=== PATIENT | female | born 1985 ===

== ENCOUNTER 2017-01-15 07:48 | Observation (INO) | payer OTHER ==
[2017-01-15] MEDS ORDERED: Lactated Ringer's 1,000 ML IV ONE ×4 (08:12→19:00)
[2017-01-15 08:41] LABS: BASO % 0.2 % (0.0-2.0); EOS % 0.1 % (0.0-4.0); HEMATOCRIT 34.1 % (34.0-47.0); LYMPH # 1.6 K/uL (1.0-4.3); LYMPH % 12.2 % (20.0-40.0); MEAN CELL VOLUME 91.7 fL (81.0-99.0); MEAN CORPUSCULAR HEMOGLOBIN 31.3 pg (27.0-31.0); MEAN CORPUSCULAR HGB CONC 34.2 g/dL (33.0-37.0); MEAN PLATELET VOLUME 9.2 fL (7.2-11.7); MONO # 0.6 K/uL (0.0-0.8); MONO % 4.7 % (0.0-10.0); RED CELL DISTRIBUTION WIDTH 13.3 % (11.5-14.5); WHITE BLOOD COUNT 13.2 K/uL (4.8-10.8)
[2017-01-15 08:52] LABS: URINE BILIRUBIN NEGATIVE (NEGATIVE); URINE BLOOD 2+ (NEGATIVE); URINE COLOR Straw (YELLOW); URINE GLUCOSE (UA) NORMAL (Normal); URINE KETONE TRACE mg/dL (NEGATIVE); URINE LEUKOCYTE ESTERASE NEG Leu/uL (Negative); URINE PROTEIN NEGATIVE (NEGATIVE); URINE UROBILINOGEN NORMAL mg/dL (0.2-1.0)
[2017-01-15 08:56] LABS: ALB/GLOB RATIO 1.4 (1.0-2.1); ALKALINE PHOSPHATASE 51 U/L (38-126); ALT/SGPT 25 U/L (9-52); AST/SGOT 18 U/L (14-36); BILIRUBIN,TOTAL 1.4 mg/dL (0.2-1.3); BLOOD UREA NITROGEN 9 mg/dL (7-17); CALCIUM 8.3 mg/dl (8.6-10.4); CARBON DIOXIDE 28 mmol/L (22-30); CHLORIDE 98 mmol/L (98-107); GFR AFRICAN-AMERICAN > 60; GLUCOSE,RANDOM 97 mg/dL (65-105); POTASSIUM 3.6 mmol/L (3.6-5.2); SODIUM 134 mmol/L (132-148); TOTAL PROTEIN 7.4 g/dL (6.3-8.3)
[2017-01-15 08:57] LABS: RBC URINE 2 /hpf (0-3); URINE BACTERIA RARE (<OCC)
--- NOTE | 2017-01-15 09:29 | C.PDOC ---
History Of Present Illness 32-year-old female, presents to the emergency department with complaints of right-sided abdominal pain that started at midnight. Pain is described as sharp and worse with every movement. Patient notes associated nausea and non-bloody/ non-bilious vomiting x 1. She had a normal bowel movement this morning. Of note , patient reports LMP was last week. (-)fevers (-)chills (-)shortness of breath (-)dysuria (-) urinary frequency (-) vaginal discharge or any other associated symptoms. No other complaints at this time. Time Seen by Provider: 01/15/17 07:53 Chief Complaint (Nursing): Abdominal Pain Past Medical History Vital Signs: Last Vital Signs Temp 98.6 F 01/15/17 15:37 Pulse 82 01/15/17 15:37 Resp 18 01/15/17 15:37 BP 118/72 01/15/17 15:37 Pulse Ox 100 01/15/17 16:17 Family History: States: Unknown Family Hx - Social History Hx Alcohol Use: Yes Hx Substance Use: No - Immunization History Hx Influenza Vaccination: No Hx Pneumococcal Vaccination: No Review Of Systems Except As Marked, All Systems Reviewed And Found Negative. Constitutional: Negative for: Fever, Chills Cardiovascular: Negative for: Chest Pain Respiratory: Negative for: Shortness of Breath Gastrointestinal: Positive for: Nausea, Vomiting, Abdominal Pain. Negative for : Diarrhea Genitourinary: Negative for: Dysuria, Frequency, Vaginal Discharge, Vaginal Bleeding Musculoskeletal: Negative for: Back Pain Physical Exam - Physical Exam Appears: Non-toxic, No Acute Distress Skin: Warm, Dry, No Rash Head: Atraumatic, Normacephalic Eye(s): bilateral: Normal Inspection, EOMI Nose: Normal Oral Mucosa: Moist Neck: Normal ROM Chest: Symmetrical Cardiovascular: Rhythm Regular, No Murmur Respiratory: Normal Breath Sounds, No Accessory Muscle Use Gastrointestinal/Abdominal: Soft, Tenderness (RUQ/RLQ/right sided pelvic tenderness), Guarding, No Rebound Extremity: Normal ROM Neurological/Psych: Oriented x3, Normal Speech ED Course And Treatment - Laboratory Results Result Diagrams: 01/15/17 14:21 01/15/17 08:31 O2 Sat by Pulse Oximetry: 100 Progress Note: Blood work, UA and CT ordered. Patients urine positive for , will cancel CT and order US. Labs pending for review. On re- evaluation, pain persists. Morphine ordered. Upon US results, case discussed with Dr Guajardo who came to evaluate pt. Dr Guajardo instructs Abd/pelvis CT with contrast and discussed risks with pt . Pt agrees and signs consent. Verbalized understanding of risk vs benefits for Ct to her and the fetus. Also instructs cefozolin and Doxy. Case discussed with Dr Denny, agreed upon plan and discharge. Upon Ct results and drop in H&H, case discussed with Dr Guajardo, who instructs admission. Disposition - Disposition Disposition: HOSPITALIZED Disposition Time: 15:00 Condition: STABLE - Clinical Impression Clinical Impression: Hemoperitoneum, Ectopic , Hydrosalpinx - Scribe Statement The provider has reviewed the documentation as recorded by the Scribe (Juarez Peralta) All medical record entries made by the Scribe were at my direction and personally dictated by me. I have reviewed the chart and agree that the record accurately reflects my personal performance of the history, physical exam, medical decision making, and the department course for this patient. I have also personally directed, reviewed, and agree with the discharge instructions and disposition.
[2017-01-15 12:39] LABS: INR 1.1
--- NOTE | 2017-01-15 12:42 | US ---
HISTORY: pain COMPARISON: None available. TECHNIQUE: Transabdominal and endovaginal ultrasound examination of the pelvis was performed. FINDINGS: UTERUS: Measures 9 x 3.4 x 4.9 cm. Normal in size and appearance. There is a small fibroid noted at the mid left uterine wall measures 1.1 x 0.8 x 0.8 centimeter. ENDOMETRIUM: Measures 4.8 mm in diameter. Unremarkable. CERVIX: No cervical abnormality identified. RIGHT OVARY: Measures 3.6 x 2.3 x 2.9 cm. There is heterogeneous mildly echogenic masslike structure at the right adnexa measures 5.6 x 4.7 x 4.7 centimeter. Normal flow. LEFT OVARY: Measures 2.6 x 1.7 x 2.65 cm. There is heterogeneous mildly echogenic structure also noted at the left adnexa measures 6.9 x 3.5 x 4.1 centimeter. Normal flow. FREE FLUID: There is small to moderate amount of complex fluid in the pelvis bilaterally. OTHER FINDINGS: Small amount of free fluid also noted at the right upper abdomen. IMPRESSION: No evidence of intrauterine . Small fibroid seen at the mid left uterine wall. Heterogeneous complex mildly echogenic structures noted at both adnexa. The differential diagnosis includes bilateral hydrosalpinx/ para ovarian abscesses. The possibility of ectopic is less likely but not totally excluded. Small to moderate amount of complex fluid in the pelvis and small amount of fluid at the right upper abdomen. No evidence of ovarian torsion. The appendix is not visualized in the right lower abdomen.
[2017-01-15] MEDS ORDERED: Morphine 4 MG/ML VIAL ONE ×2 (12:47→15:44)
[2017-01-15] MEDS ORDERED: Sodium Chloride 0.9% 1,000 ML IV ONE (12:51)
[2017-01-15] MEDS ORDERED: cefOXitin IV 1 gm in Dextrose 1 GM/50 ML BAG IV ONE (13:09)
[2017-01-15] MEDS ORDERED: Iodixanol 320 MG/ML 100 ML BOTTLE IV ONE (13:46)
[2017-01-15 14:24] LABS: BASO # 0.1 K/uL (0.0-0.2); BASO % 0.5 % (0.0-2.0); EOS % 0.4 % (0.0-4.0); LYMPH # 2.5 K/uL (1.0-4.3); MEAN CELL VOLUME 91.5 fL (81.0-99.0); MEAN CORPUSCULAR HEMOGLOBIN 30.7 pg (27.0-31.0); MEAN CORPUSCULAR HGB CONC 33.5 g/dL (33.0-37.0); MEAN PLATELET VOLUME 8.8 fL (7.2-11.7); MONO # 0.7 K/uL (0.0-0.8); MONO % 5.9 % (0.0-10.0); WHITE BLOOD COUNT 11.2 K/uL (4.8-10.8)
--- NOTE | 2017-01-15 15:06 | CT ---
PROCEDURE: CT Abdomen and Pelvis with contrast HISTORY: pain COMPARISON: Comparison is made to the previous same-day ultrasound of the pelvis. TECHNIQUE: Contrast dose: 100 mL Visipaque 320 Radiation dose: Total exam DLP = 638.37 mGy-cm. This CT exam was performed using one or more of the following dose reduction techniques: Automated exposure control, adjustment of the mA and/or kV according to patient size, and/or use of iterative reconstruction technique. FINDINGS: LOWER THORAX: Unremarkable. LIVER: Unremarkable. No gross lesion or ductal dilatation. GALLBLADDER AND BILE DUCTS: Unremarkable. PANCREAS: Unremarkable. No gross lesion or ductal dilatation. SPLEEN: Unremarkable. ADRENALS: Unremarkable. No mass. KIDNEYS AND URETERS: Unremarkable. No hydronephrosis. No solid mass. VASCULATURE: Unremarkable. No aortic aneurysm. BOWEL: Unremarkable. No obstruction. No gross mural thickening. APPENDIX: Normal appendix. PERITONEUM: There is high attenuation free fluid in the abdomen & pelvis may represent hemoperitoneum. No evidence of free air. LYMPH NODES: Unremarkable. No enlarged lymph nodes. BLADDER: Mild urinary bladder wall thickening is noted. REPRODUCTIVE: The uterus is heterogeneous poorly defined and mildly enlarged. There is 1.9 centimeter cystic structure superior and to the right of the uterus. There is questionable adjacent small tubular cystic structure also noted at the right lower abdomen right pelvis. BONES: No acute fracture. OTHER FINDINGS: None. IMPRESSION: Findings suspicious for small abdominal and small to moderate pelvic hemoperitoneum. No evidence of appendicitis. Heterogeneous poorly defined uterus. 1.9 centimeter cyst/cystic structure noted superior to the right of the uterus and questionable adjacent small tubular cystic structure also noted at the right pelvis. The possibility of rupture ectopic is not totally excluded. Please correlate clinically and if indicated close follow-up reassessment is suggested.
--- NOTE | 2017-01-15 15:29 | CP.PCM.HP ---
History of Present Illness - History of Present Illness History of Present Illness: 32 yr lmp 01/02/17 davida with c/o pain in the abdomen started last night 11pm , got wrse on sneezing or coughing or moving. ome brownish discharge. 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 pt is not sure about preg. if desired or not obhx 1 x pmh denies med none all nkda psh den soch smoking +++ sse brounish disc pelvic exam ext gen no redmn, some brownish disc, tenderness on palpation at right side abd soft, tenderness on palpation h/h dropping 11.[address] scan neg for appdeicitis pelvic sono r/o hydosalpinx/abcess cannot r/o ectopic Present on Admission - Present on Admission Any Indicators Present on Admission: No History of DVT/PE: No History of Uncontrolled Diabetes: No Urinary Catheter: No Decubitus Ulcer Present: No Review of Systems - Reproductive: Female Reproductive:Female: Pelvic Pain Past Patient History - Past Social History Smoking Status: socially - PSYCHIATRIC Hx Substance Use: No Meds Allergies/Adverse Reactions: Allergies Allergy/AdvReac Type Severity Reaction Status Date / Time No Known Allergies Allergy Verified 01/15/17 07:59 Physical Exam - Exam External exam: NORMAL EXTERNAL EXAM Bimanual exam: Adnexal (tenderness), Uterine Tenderness - Extremities Exam Extremities exam: Positive for: normal inspection Results - Vital Signs Recent Vital Signs: Last Vital Signs Temp 98.4 F 01/15/17 08:01 Pulse 89 01/15/17 12:27 Resp 18 01/15/17 12:27 BP 116/73 01/15/17 12:27 Pulse Ox 100 01/15/17 12:27 - Labs Result Diagrams: 01/15/17 14:21 01/15/17 08:31 Labs: Laboratory Results - last 24 hr 01/15/17 01/15/17 01/15/17 08:31 08:31 08:31 WBC 13.2 H RBC 3.71 L Hgb 11.6 Hct 34.1 MCV 91.7 MCH 31.3 H MCHC 34.2 RDW 13.3 Plt Count 212 MPV 9.2 Neut % (Auto) 82.8 H Lymph % (Auto) 12.2 L Edmunds % (Auto) 4.7 Eos % (Auto) 0.1 Baso % (Auto) 0.2 Neut # 11.0 H Lymph # 1.6 Edmunds # 0.6 Eos # 0.0 Baso # 0.0 PT INR APTT Sodium 134 Potassium 3.6 Chloride 98 Carbon Dioxide 28 Anion Gap 12 BUN 9 Creatinine 0.5 L Est GFR ( Amer) > 60 Est GFR (Non-Af Amer) > 60 Random Glucose 97 Calcium 8.3 L Total Bilirubin 1.4 H AST 18 ALT 25 Alkaline Phosphatase 51 Total Protein 7.4 Albumin 4.3 Globulin 3.1 Albumin/Globulin Ratio 1.4 Lipase 50 Beta HCG, Quant 205.61 Urine Color Straw Urine Clarity Clear Urine pH 6.0 Ur Specific [place] 1.004 Urine Protein Negative Urine Glucose (UA) Normal Urine Ketones Trace Urine Blood 2+ H Urine Nitrate Negative Urine Bilirubin Negative Urine Urobilinogen Normal Ur Leukocyte Esterase Neg Urine RBC (Auto) 2 Ur Squamous Epith Cells 2 Urine Bacteria Rare Urine HCG, Qual Positive Blood Type Antibody Screen 01/15/17 01/15/17 01/15/17 12:26 12:26 14:21 WBC 11.2 H RBC 3.27 L Hgb 10.0 L Hct 30.0 L MCV 91.5 MCH 30.7 MCHC 33.5 RDW 13.0 Plt Count 173 MPV 8.8 Neut % (Auto) 71.2 Lymph % (Auto) 22.0 Edmunds % (Auto) 5.9 Eos % (Auto) 0.4 Baso % (Auto) 0.5 Neut # 8.0 H Lymph # 2.5 Edmunds # 0.7 Eos # 0.0 Baso # 0.1 PT 12.2 INR 1.1 APTT 25 Sodium Potassium Chloride Carbon Dioxide Anion Gap BUN Creatinine Est GFR ( Amer) Est GFR (Non-Af Amer) Random Glucose Calcium Total Bilirubin AST ALT Alkaline Phosphatase Total Protein Albumin Globulin Albumin/Globulin Ratio Lipase Beta HCG, Quant Urine Color Urine Clarity Urine pH Ur Specific [place] Urine Protein Urine Glucose (UA) Urine Ketones Urine Blood Urine Nitrate Urine Bilirubin Urine Urobilinogen Ur Leukocyte Esterase Urine RBC (Auto) Ur Squamous Epith Cells Urine Bacteria Urine HCG, Qual Blood Type O POSITIVE Antibody Screen Negative Assessment & Plan - Assessment and Plan (Free Text) Assessment: 32 yr pelvic pain r/o ectopic . Plan: plan admit to geothermal plant manager diagnostc laproscopy poss removal of ectopic poss ex lap cefoxitin/doxy npo/ivf or aware anthesi aware Informed consent taken r/a/b discussed. pt understand and agrees - Date & Time Date: 01/15/17 Time: 16:00
[2017-01-15] MEDS ORDERED: Midazolam 2 MG/2 ML VIAL ONE (16:29)
[2017-01-15] MEDS ORDERED: Propofol 10 mg/ml Inj (20 ML) ONE ×2 (16:29→17:45)
[2017-01-15] MEDS ORDERED: Bupivacaine 0.5% Inj(30mL) ONE (17:02)
[2017-01-15] MEDS ORDERED: Succinylcholine Chloride 20 mg/ml Syr (5 ml) IV ONE (17:04)
[2017-01-15] MEDS ORDERED: Rocuronium 10 mg/ml (5 ml) ONE (17:04)
[2017-01-15] MEDS ORDERED: Lidocaine Hydrochloride 5 ML INJ ONE (17:04)
[2017-01-15] MEDS ORDERED: HYDROmorphone 0.5 mg/0.5 ml ISec IVP PRN (17:06)
[2017-01-15] MEDS ORDERED: Neostigmine Methylsulfate 3mg/3ml Syringe IV ONE (17:27)
--- NOTE | 2017-01-15 18:07 | PCM.SURG1 ---
Surgeon's Initial Post Op Note - Surgeon's Notes Surgeon: dr de la rosa Applications Support Specialist: dr guidry Type of Anesthesia: General LMA Anesthesia Administered By: dr patel Pre-Operative Diagnosis: 32 yr with ruptured ectopic preg/pelvic pain Operative Findings: see the op reort Post-Operative Diagnosis: same with ruptured left ectopic preg Operation Performed: laproscopic left salpingectomy, removal of heemopretineum Specimen/Specimens Removed: left tube and ectopic Estimated Blood Loss: EBL {In ML}: 450 Blood Products Given: N/A Drains Used: No Drains Post-Op Condition: Good Date of Surgery/Procedure: 01/15/17 Time of Surgery/Procedure: 18:40
[2017-01-15 18:48] VITALS: O2SAT 99
[2017-01-15 19:04] VITALS: BP 114/72; PULSE 79; RESP 17; TEMP 98.3
--- NOTE | 2017-01-16 19:11 | OP ---
PROCEDURE DATE: 01/15/2017 PREOPERATIVE DIAGNOSIS: A 32-year-old 2, para 1, at almost 4 weeks pelvic pain, rule out ruptured ectopic. POSTOPERATIVE DIAGNOSIS: Ruptured ectopic. SURGEON: Luis Guajardo MD. COMMUNITY ORGANIZATION AIDE SURGEON: Pancho Hoyos MD, who was present throughout the surgery for helping with the camera, exposure, and retraction. COMPLICATIONS: None. ESTIMATED BLOOD LOSS: 400 was the peritoneum and 50 mL was the EBL. ANESTHESIA: General anesthesia. ANESTHESIOLOGIST: Dr. Piotr Gonzales. DESCRIPTION OF PROCEDURE: After informed consent was obtained, the patient was brought to the operating room, placed on the table where general anesthesia was administered and found to be sufficient. She was prepped and draped in normal sterile fashion. Examination has found uterus to be 6-week size. After that, the anterior lip of the cervix was grasped with a tenaculum, gentle dilatation of the cervix was done. The HUMI catheter was inserted. Then, after the Roman catheter was then inserted under sterile condition. After that, attention was turned towards the patient's abdomen at the lower site of the umbilicus. Marcaine was given. Incision was made with a knife. The fascia was grasped with Eb, it was cut. Then the peritoneum was lifted up. The fascia was held up with 2-0 Vicryl. Jered was used and the intraabdominal placement was confirmed using gas and the bowel was then inflated. We went into the abdominal cavity and found there was a left ectopic on the tube, it was ruptured, and then there was blood on the hemoperitoneum. The decision was to do 5-mm ports on both the sides, on the left and on the right lower quadrant. After that, two ports were placed, then the hemoperitoneum was suctioned with the suction. It was almost like 400 of hemoperitoneum. After that, the tube on the left side was ruptured and was bleeding. The right tube looks normal. So, the decision was to do the left salpingectomy. It was held up from one side and the LigaSure was used to take out the tube. It was hemostatic. No bleeding. Lot of irrigation was done and found to be hemostatic. No bleeding. The right upper quadrant was lowered back. There was some blood, which was sucked out too. The right tube and ovaries looks normal, our decision was to close. The left tube, which was removed was taken out with EndoCatch bag from the center port from the umbilicus. It was removed and after that irrigation was done, again it was hemostatic. After that all the ports were removed. The fascia was closed using 2-0 Vicryl in interrupted fashion. Skin was closed using 4-0 Monocryl on both the left and the right side. HUMI was removed. Catheter was removed. The decision was to discharge the patient home. She was discharged home on Flagyl, doxycycline, and Percocet. No sex for 2 weeks. Follow up in the office in 1 week. If any fever, call. Luis Guajardo MD
== END 2017-01-16 00:30 | disposition home or self-care (01) ==
LOC: C.ER 07:48 → C.4M 15:14
PROVIDERS: ADMIT Obstetrics & Gynecology; ATTEND Obstetrics & Gynecology
DX: O00.01 Abdominal pregnancy with intrauterine pregnancy (principal)
CPT/HCPCS: 59120; 74177; 76830; 76856; 80053; 81001; 83690; 84702; 84703; 85025; 85610; 85730; 86850; 86900; 87040; 87491; 87591; 88302; 96365; 96367; 96375; 96376; 99285; G0378; J0694; J1170; J2250; J2270; J2405; J2704; J2710; J3010; J7040; J7120; Q9967